=== PATIENT | female | born 1940 | race Two or more races ===

== ENCOUNTER 2024-06-04 17:59 | Inpatient (IN) | payer OTHER, SELFPAY ==
[2024-06-04 11:27] VITALS: BP 163/85
[2024-06-04 11:54] LABS: % Basophils 0.1 % (0-2); % Immature Granulocytes 0.3 % (0-0.5); % Lymphocytes 21.2 % (20.5-51.1); % Monocytes 6.6 % (1.7-9.3); % Neutrophils 71.8 % (42.2-75.2); Absolute Lymphocytes 1.6 10^3/uL (1.2-3.4); Absolute Monocytes 0.5 10^3/uL (0.1-0.6); Absolute Neutrophils 5.4 10^3/uL (1.4-6.5); Hematocrit 36.7 % (37.0-47.0); Hemoglobin 12.5 g/dL (12.0-16.0); Mean Corp Hgb Conc. 34.1 g/dL (33.0-37.0); Mean Corpuscular Hgb 31.2 pg (27.0-31.0); Mean Corpuscular Volume 91.5 fL (81.0-99.0); Mean Platelet Volume 10.8 fL (7.4-10.4); Nucleated Red Blood Cells % 0 %; Platelet Count 171 10^3/uL (130-400); Red Blood Cell Count 4.01 10^6/uL (4.20-5.40); Red Cell Dist. Width 13.9 % (11.5-14.5); White Blood Cell Count 7.5 10^3/uL (4.8-10.8)
[2024-06-04 12:08] LABS: ALT (SGPT) 26 U/L (0-35); AST (SGOT) 28 U/L (14-36); Albumin 3.9 g/dl (3.5-5.0); Alkaline Phosphatase 74 U/L (38-126); Blood Urea Nitrogen 15 mg/dl (7-17); Calcium 9.3 mg/dl (8.4-10.2); Carbon Dioxide 21 mmol/L (22-30); Chloride 104 mmol/L (98-107); Glucose 186 mg/dl (70-99); Potassium 4.3 mmol/L (3.5-5.1); Sodium 137 mmol/L (135-145); Total Bilirubin 1.4 mg/dl (0.2-1.3); Total Protein 7.1 g/dl (6.3-8.2); eGFR > 60.00
[2024-06-04 12:09] LABS: Lactic Acid 1.6 mmol/L (0.7-2.0)
[2024-06-04 12:12] LABS: COVID-19 Antigen Negative (Negative)
[2024-06-04 12:17] LABS: Troponin I < 0.012 ng/ml
[2024-06-04 12:22] VITALS: BP 160/66
[2024-06-04 12:24] LABS: Lipase 87 U/L (23-300)
--- NOTE | 2024-06-04 12:31 | ED.GENMED ---
History of Present Illness
General
Chief Complaint: Abdominal Pain
Time Seen by Provider: 06/04/24 12:16
History of Present Illness
History of Present Illness:
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
associated with nausea, loss of appetite, and fatigue. Patient also has a mild cough. She has had weight loss. No fevers. No vomiting or diarrhea. Patient was seen in the urgent care last week and underwent an x-ray of the chest and an EKG both
of which were reportedly normal. Given persistent symptoms patient was ultimately directed to the emergency department.
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
Review of Systems
Review of Systems
All Other Systems: ROS reviewed and negative except as documented in HPI and ROS
Phy Exam
Physical Exam
Physical Exam:
GENERAL: Alert , in no apparent distress
EYE: pupils equal and reactive
NECK: Supple, no significant adenopathy.
ENT: o/p clr, mmm.
CARDIAC: Regular rate and rhythm .
LUNGS: Clear breath sounds bilaterally, no acute respiratory distress, no wheezes/rales/rhonchi
ABDOMEN: Soft, without focal tenderness, no r/g, no cvat
NEUROLOGICAL: Alert and oriented, no focal neuro deficits
SKIN: Warm and dry, skin intact.
MUSCULOSKELETAL: No edema, well perfused.
PSYCH: Normal and appropriate interaction.
Course
Orders/Labs/Results
Orders:
Orders
06/04/24 11:31
Electrocardiogram (*1) Urgent
Reason for Study: Abdominal Pain
06/04/24 11:32
EKG- Treatment ONCE
06/04/24 11:42
COVID-19 Antigen Urgent
Source: Nasal Swab
Complete Blood Count/With Diff Urgent
Comprehensive Metabolic Panel Urgent
Lactic Acid Urgent
Lipase Urgent
Troponin I Urgent
Influenza A+B Rapid Molecular Urgent
MECHE Source: Nasal Swab
Specimen Description:
06/04/24 12:33
CR Chest - 2 Views Urgent
Comment:
Reason For Exam: cough
06/04/24 12:36
Abdomen/Pelvis w Contrast CT [CT Abd/pelvis W Iv Cont] Urgent
Comment:
Reason For Exam: abd pain loss of appetite
06/04/24 13:56
Urinalysis Reflex To Culture Urgent
Date Specimen was Collected: 06/04/24
Time Specimen was Collected: 13:12
Urine Microscopic Reflex Cult Urgent
Abnormal Lab Results
06/04/24 06/04/24
11:42 13:56
RBC 4.01 L 10^6/uL
(4.20-5.40)
Hct 36.7 L %
(37.0-47.0)
MCH 31.2 H pg
(27.0-31.0)
MPV 10.8 H fL
(7.4-10.4)
Carbon Dioxide 21 L mmol/L
(22-30)
Glucose 186 H mg/dl
(70-99)
Total Bilirubin 1.4 H mg/dl
(0.2-1.3)
Leukocyte Esterase Rfl Trace A
(Negative)
06/04/24 11:42
06/04/24 11:42
Vital Signs
Initial and Last Documented VS:
Initial Vital Signs
Temp Pulse Resp BP Pulse Ox
98.2 F 97 20 163/85 98
06/04/24 11:27 06/04/24 11:27 06/04/24 11:27 06/04/24 11:27 06/04/24 11:27
Last Documented Vital Signs
Temp Pulse Resp BP Pulse Ox
98.2 F 79 19 166/74 98
06/04/24 11:27 06/04/24 16:11 06/04/24 16:11 06/04/24 16:11 06/04/24 16:11
MDM/Problems Addressed
Differential Diagnosis Includes:
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
Overall, patient appears well. Vital signs remarkable for an elevated blood pressure. Physical examination described above. Abdomen soft and nontender however given symptoms and findings we will obtain blood work in addition to urinalysis and CT
scan of the abdomen and pelvis with IV contrast.
06/04/2024 17:45: Screening labs grossly within normal limits/consistent with the patient's baseline. CT scan of the abdomen and pelvis reveals cholelithiasis without evidence of acute cholecystitis. There is also a lung nodule which patient and
family were made aware of. Patient's family members are very concerned for the patient's symptoms given loss of appetite/decreased p.o. intake, lethargy, fatigue, and weakness. Given findings we will plan for admission to the hospital for failure
to thrive. 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
*Critical Care Note
Total Time (30-74mins, 75-104mins- exclusive of procedures): Not Applicable
ED Attending Note
-
Portions of this chart may have been created with voice recognition software.� Occasional wrong word or��sound alike� substitutions may have occurred due to the inherent limitations of voice recognition software.
Discharge Plan
Departure
Patient Disposition: Admit
Date of Disposition: 06/04/24
Time of Disposition: 17:01
Admit to: Med/Surg
Admit to doctor: Dana Johnson
Presentation/result/management discussed w/ accepting MD/DO: Hospitalist
Patient with high blood pressure during this ER visit?: Yes
Condition: Fair
Covid-19: Negative COVID-19
Discharge Problem:
Abdominal pain, Weakness, Adult failure to thrive
Referrals:
Mary Beth Hidalgo NP [Family Provider] -
Interventions
Interventions:
*Risk Screen - Suicide Last Done: 06/04/24 12:23
*General Assessment Last Done: 06/04/24 11:27
*Neglect/Abuse Screening Last Done: 06/04/24 12:23
ED- Fall Risk Assessment Last Done: 06/04/24 12:23
PE-Exvoor-Okrfejsupp Assessment Last Done: 06/04/24 11:59
Discharge Date and Time
Print Language: BHUTANESE
[2024-06-04 14:29] LABS: Urine Albumin Negative (Neg - Trace); Urine Bilirubin Negative (Negative); Urine Character Clear (Clear); Urine Color Yellow; Urine Glucose Negative (Negative); Urine Ketone Negative (Negative); Urine Leukocyte Trace (Negative); Urine Nitrite Negative (Negative); Urine Occult Blood Negative (Negative); Urine Specific Gravity 1.005 (<1.030); Urine Urobilinogen Negative (Neg - 1+); Urine pH 6.5 (5.0-9.0)
[2024-06-04 14:52] LABS: Urine White Cell 0-2 /HPF (0-5)
[2024-06-04 14:53] LABS: Urine Red Blood Cell None Seen /HPF (0-2)
[2024-06-04 16:11] VITALS: BP 166/74
--- NOTE | 2024-06-04 17:08 | HPS.HSE ---
Family Physician
-
Family Physician: Mary Beth Hidalgo NP
Chief Complaint
-
Abdomen pain
History of Present Illness
84-year-old [place]-speaking female with HTN, H/O CVA, H/O DVT on anticoagulation that presented with family due to the complaint of abdominal pain. Describes roughly 2 weeks of epigastric abdominal discomfort associated with nausea, loss of
appetite, fatigue. Has had weight loss recently, though family denies any known fevers, vomiting, diarrhea. Patient does state that the symptoms are worse at night, has been accompanied by sensation of heartburn though denies any regurgitation or
dysphagia. States that pain prevents her from eating, is not worse after eating. Patient was seen in urgent care last week and had x-ray and EKG, results unavailable to reportedly they were both normal. Due to persistence of symptoms she was sent
to the emergency department. Upon arrival was hypertensive with systolic blood pressure in the 160s though otherwise afebrile, hemodynamically stable, and on room air initial lab studies largely unremarkable, total bilirubin 1.4. Troponin
negative, ECG without ischemic findings. Chest x-ray unremarkable. CT A/P was without acute findings, showed cholelithiasis but no findings of cholecystitis, showed 4.3 mm subpleural nodule in the left lower lobe.
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 History obtained from patient and her 2 daughters.
Medical History
Past Medical History
Past Medical History: Reports CVA, HTN and Other (DVT)
Past Surgical History: Reports None
Social History
Tobacco: Non-smoker
Alcohol: None
Drug: None
Family History
Family History: Not pertinent
Allergies / Home Medications
Allergies reflects when Allergies were last updated in [employer].
Home Medications with original date entered in [employer]
Allergy/Medication List:
Allergies
Allergy/AdvReac Type Severity Reaction Status Date / Time
No Known Allergies Allergy Unverified 06/04/24 11:27
Review of Systems
-
History Source: Patient and Family
A 12 point ROS was completed and negative except as noted: Yes
Constitutional: Reports No Symptoms
EENT: Reports No Symptoms
Respiratory: Reports Cough
Cardiac: Reports No Symptoms
Abdomen/GI: Reports See HPI
: Reports No Symptoms
Musculoskeletal: Reports No Symptoms
Skin: Reports No Symptoms
Neurological: Reports No Symptoms
Endocrine: Reports No Symptoms
Hematologic/Lymphatic: Reports No Symptoms
Psych: Reports No Symptoms
Physical Exam
Vital Signs
Vital Signs
Temp Pulse Resp BP Pulse Ox
98.2 F 79 19 166/74 98
06/04/24 11:27 06/04/24 16:11 06/04/24 16:11 06/04/24 16:11 06/04/24 16:11
Physical Exam
General: Well Developed, Well Nourished, No Apparent Distress, Comfortable and Obese
HEENT: NormoCephalic, Anicteric, Moist mucous membranes, Atraumatic and PERRLA
Respiratory: Clear and Non Labored Respirations; No Wheezes, Rales or Rhonchi
Cardiac: S1/S2 and Regular Rhythm; No Murmur, Rub, Gallop or Peripheral Edema
GI: Soft, Non Tender (Nontender to deep epigastric palpation, possibly limited by habitus), Non Distended and Normal Bowel Sounds
Musculoskeletal: No Clubbing and No Cyanosis
Skin: Warm and Dry; No Rash
Neuro: AO x 3 and Nonfocal/grossly intact
Psych: Calm
Laboratory Results
-
06/04/24 11:42
06/04/24 11:42
Laboratory Results
Lactic Acid 1.6 mmol/L (0.7-2.0) 06/04/24 11:42
Total Bilirubin 1.4 mg/dl (0.2-1.3) H 06/04/24 11:42
AST 28 U/L (14-36) 06/04/24 11:42
ALT 26 U/L (0-35) 06/04/24 11:42
Alkaline Phosphatase 74 U/L (38-126) 06/04/24 11:42
Troponin I < 0.012 ng/ml 06/04/24 11:42
Lipase 87 U/L (23-300) 06/04/24 11:42
Data Reviewed
-
CT Scan: Report Reviewed by me, Discussed with Patient and Discussed with Family
Lab Data: Labs Reviewed by me, Discussed with Patient and Discussed with Family
Impression/Plan
-
#Epigastric pain
#Nonproductive cough
-Question GERD/esophagitis/gastritis as etiology for the symptoms; worse at night, with heartburn as Sx
-Has been present for roughly 2-3 weeks, associated with recent weight loss as well
-CT A/P w/ contrast without acute findings, cholelithiasis but no gallbladder inflammation
-Chest x-ray without any acute findings, or identifiable causes for cough
-No peritoneal signs on exam, no free air on x-ray
Plan
-Will start PPI and famotidine empirically for acid suppression
-If responsive to acid suppression will need EGD, likely OP
-Monitor symptoms, serial abdomen exam
-Trend CBC on home Eliquis
-Regular diet for now
-Avoid NSAIDs
#Failure to thrive
#Weight loss
-Likely related to epigastric pain and reduced intake
-Will start regular diet, calorie counts
-Consider Ensure with meals
#Lung nodule
-Will need follow-up CT as OP in 12 months
#Hypertension
-No known history of hypertensive systemic disease
-Home meds include losartan 50 mg QD, amlodipine 2.5 mg HS
-Blood pressure elevated now though unclear if she got the meds today
-Will add on hydralazine as needed
#Gout
-Home medications include daily allopurinol 100 mg
-No signs of active flare
#H/O CVA
-Unclear etiology, not currently on aspirin or statin
-No obvious residual deficits noted
#H/O DVT
-Unclear nature of disease, likely unprovoked is on indefinite AC
-Home medications include Eliquis 2.5 mg twice daily
DVT prophylaxis: Home Eliquis
Diet: Regular
CODE STATUS: Full code
Disposition: Admit to Med/Surg, PT/OT evaluation
[2024-06-04 21:44] VITALS: BP 151/73; BMI 34.1
--- NOTE | 2024-06-04 21:45 | PTCARENOTE ---
Patient admitted from the ED. Patient ambulated into room. Patient AAOx3. Patient is able to state needs. Call giraldo within reach. Will continue with current plan.
[2024-06-04] MEDS: LR 1000 IV (22:19)
[2024-06-04] MEDS: ELIQUIS 2.5 MG PO (22:19)
[2024-06-04] MEDS: PROTONIX IV 40 MG IV (22:20)
[2024-06-04] MEDS: NSS (PRESERVATIVE FREE) 10 ML IV (22:20)
[2024-06-04] MEDS: NORVASC 2.5 MG PO (22:25)
[2024-06-04] MEDS: ZYLOPRIM 100 MG PO (22:26)
[2024-06-04 23:00] VITALS: BP 130/65
[2024-06-05 07:14] VITALS: BP 154/70
[2024-06-05 07:16] LABS: % Basophils 0.2 % (0-2); % Eosinophils 0.2 % (0-6); % Immature Granulocytes 0.3 % (0-0.5); % Lymphocytes 24.9 % (20.5-51.1); % Neutrophils 64.4 % (42.2-75.2); Absolute Lymphocytes 1.5 10^3/uL (1.2-3.4); Absolute Monocytes 0.6 10^3/uL (0.1-0.6); Absolute Neutrophils 3.9 10^3/uL (1.4-6.5); Hematocrit 31.7 % (37.0-47.0); Hemoglobin 11.2 g/dL (12.0-16.0); Mean Corp Hgb Conc. 35.3 g/dL (33.0-37.0); Mean Corpuscular Hgb 32.3 pg (27.0-31.0); Mean Corpuscular Volume 91.4 fL (81.0-99.0); Mean Platelet Volume 11.4 fL (7.4-10.4); Nucleated Red Blood Cells % 0 %; Platelet Count 155 10^3/uL (130-400); Red Blood Cell Count 3.47 10^6/uL (4.20-5.40); Red Cell Dist. Width 13.6 % (11.5-14.5)
[2024-06-05 08:05] LABS: Blood Urea Nitrogen 15 mg/dl (7-17); Calcium 8.8 mg/dl (8.4-10.2); Carbon Dioxide 25 mmol/L (22-30); Chloride 105 mmol/L (98-107); Estimated Creatinine Clearance 45 ml/min; Glucose 93 mg/dl (70-99); Potassium 4.8 mmol/L (3.5-5.1); Sodium 139 mmol/L (135-145)
[2024-06-05] MEDS: ELIQUIS 2.5 MG PO (08:40)
[2024-06-05] MEDS: VITAMIN D3 (cholecalciferol) 50 MCG PO (08:40)
[2024-06-05] MEDS: PROTONIX IV 40 MG IV (08:40)
[2024-06-05] MEDS: LR 1000 IV (08:40)
[2024-06-05] MEDS: NSS (PRESERVATIVE FREE) 10 ML IV (08:40)
[2024-06-05] MEDS: COZAAR 50 MG PO (08:41)
--- NOTE | 2024-06-05 10:49 | W.PN.HOSP.TC ---
Addendum entered and electronically signed by Charli Tyson DO 06/05/24 13:46:
>30 minutes spent on preparing discharge for today
Original Note:
Today's Communication/Plan
-
Continue antacid therapy
Monitor oral intake
Likely discharge home with VN
Patient does not want home PT
Assessment / Plan
Assessment / Plan
#GERD
#Questionable gastritis/esophagitis versus dyspepsia
-Presented as epigastric pain, reduced oral intake with weight loss; heartburn symptoms worse at night as well as well as intermittent cough
-Started on antacid therapy at admission and symptomatically she is improved today, requesting food today
-CT A/P w/ contrast without acute findings, cholelithiasis but no gallbladder inflammation
-Chest x-ray without any acute findings, or identifiable causes for cough
-No peritoneal signs on exam, no free air on x-ray
Plan
-DC on daily PPI, famotidine as needed twice daily
-Follow-up with GI OP for EGD, H. pylori biopsy
-Avoid NSAIDs
#Failure to thrive
#Weight loss
-Likely related to epigastric pain and reduced intake
-Will start regular diet, calorie counts
-Consider Ensure with meals
#Lung nodule
-Will need follow-up CT as OP in 12 months
#Hypertension
-No known history of hypertensive systemic disease
-Home meds include losartan 50 mg QD, amlodipine 2.5 mg HS
-Blood pressure elevated now though unclear if she got the meds today
-Will add on hydralazine as needed
#Gout
-Home medications include daily allopurinol 100 mg
-No signs of active flare
#H/O CVA
-Unclear etiology, not currently on aspirin or statin
-No obvious residual deficits noted
#H/O DVT
-Unclear nature of disease, likely unprovoked is on indefinite AC
-Home medications include Eliquis 2.5 mg twice daily
DVT prophylaxis: Home Eliquis
Diet: Regular
CODE STATUS: Full code
Anticipated Discharge: Within 24 hours
Subjective/Interval History
-
Date of Service: June 05, 2024
Seen and examined at the bedside. No acute events reported overnight. AFVSS this morning
Nursing at bedside provided translation. Patient states she feels well, has no abdomen pain and is requesting food.
Denies other new complaints.
Updated daughter at the bedside about likely discharge later
Objective Data
-
Labs:
Laboratory Results
06/05/24
05:59
WBC 6.0
Hgb 11.2 L
Hct 31.7 L
Plt Count 155
Sodium 139
Potassium 4.8
Chloride 105
Carbon Dioxide 25
BUN 15
Creatinine 1.0
Glucose 93
Calcium 8.8
Vital Signs:
Vital Signs
Temp Pulse Resp BP Pulse Ox
98.8 F 75 16 154/70 93
06/05/24 07:14 06/05/24 07:14 06/05/24 07:14 06/05/24 07:14 06/05/24 07:14
I&O
06/04/24 06/05/24 06/06/24
06:59 06:59 06:59
Intake Total 900 / 900
Balance 900 / 900
Review of Systems
-
History Source: Patient
All other systems: Reviewed and negative
Physical Exam
-
General: Well Developed, No Apparent Distress, Comfortable and Obese
HEENT: Normocephalic, Atraumatic and Moist Mucous Membranes
Respiratory: Clear to Auscultation and Non Labored Respirations
Cardiac: Regular Rhythm and S1/S2; Negative Murmur, Rub or Gallop
GI: Soft, Nontender, Nondistended and Normal Bowel Sounds
Musculoskeletal: No Clubbing, No Cyanosis and No Edema
Skin: Warm, Dry and Normal Turgor; Negative Rash
Neuro: AO x 3, Nonfocal/Grossly Intact and Central Nerve's Intact
Psych: Calm
--- NOTE | 2024-06-05 13:46 | W.DCSUMMARY ---
Discharge Summary
Discharge Data
Date of Admission: 06/04/24
Date of Discharge: 06/05/24
-
Pending Results: No
Hospital Course
84-year-old female with hypertension, gout, history of DVT on Eliquis that presented to the hospital with epigastric pain over 2 to 3 weeks, associated with reduced oral intake and weight loss. For additional history obtained by patient and family,
noted to have worsening symptoms at night and associated with a dry cough. Also mentioned occasional heartburn symptoms, though denied any dysphagia or regurgitation. Was started empirically on antacid regimen with PPI and as needed famotidine.
By next day was symptomatically improved and requesting breakfast. Monitored for recurrence of symptoms which were not present by time of discharge. Transitioned regimen to pantoprazole 40 mg daily, famotidine 40 mg up to twice daily as needed for
breakthrough symptoms of heart pain/dyspepsia. Recommend outpatient follow-up with family doctor. Provided referral for gastroenterology. With new onset GERD in her 80s she should have an EGD to rule out malignancy.
Discharge Plan
-
Patient Disposition: Home (Routine Discharge)
Discharge Diagnosis/Procedures: Gastroesophageal reflux disease
Possible gastritis/esophagitis
Condition: Good
Diet: No restrictions
Additional Diets: If you notice certain foods that make heartburn worse then avoid those food
Activity: As tolerated
Driving Restrictions: Not until seen by your Dr
Bathing Restrictions: None
Blood Work: None
Others Tests: None
Activity Restrictions/Additional Instructions:
Follow-up with your family doctor after discharge, should be seen in office within 1 to 2 weeks
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 Call their office to schedule an appointment, should have a procedure called an EGD done due to new onset of GERD
If you notice dark black tar-like stools or the presence of red blood in your stools then return to the emergency department for further evaluation
Instructions: Acid reflux and GERD in adults
Referrals:
Mary Beth Hidalgo NP [Family Provider] -
Venu Redmond, [Active] - in one to two weeks
Additional Discharge Medication Instructions: Start pantoprazole 40 mg every day
Start famotidine 40 mg up to twice daily as needed for symptoms of heartburn or abdomen pain
Prescriptions:
New
famotidine 40 mg Tablet
40 mg PO BIDPRN PRN (Reason: Heartburn/epigastric pain) 30 Days Qty: 60 0RF
pantoprazole 40 mg tablet,delayed release (DR/EC)
40 mg PO DAILY 30 Days Qty: 30 0RF
Continued
losartan 50 mg Tablet
50 mg PO DAILY
amlodipine 2.5 mg Tablet
2.5 mg PO DAILY
allopurinol 100 mg Tablet
100 mg PO DAILY
Eliquis 2.5 mg Tablet
2.5 mg PO BID
Vitamin D3
50 mcg DAILY
Discharge Orders:
Discharge Patient (As Directed); Ordered 06/05/24
Ordered By: Charli Tyson
Discharge Date and Time
Print Language: SPANISH
--- NOTE | 2024-06-05 14:14 | CM ---
Met with patient and daughter.
Patient is djiboutian speaking/daughter translate
IA Completed.
CM consult completed - VN - PATIENT/DAUGHTER declines VN - tt hospitalist
Patient lives in an apartment no steps, elevator access
PLOF: ambulates without device
DME: shower chair
Has private aides daily for 6hrs through [facility]
PCP: Steve Lane & Elsa Haynes,
Pharmacy: [facility],
PLAN: Home, declines VN - has private aides daily 6hrs through [facility]
daughter to transport
[2024-06-05 14:23] VITALS: BP 150/68
== END 2024-06-05 14:48 | disposition home or self-care (01) | DRG 392 ==
LOC: 4 WEST ACU 17:59
PROVIDERS: Emergency Medicine; Physician Assistant; ADMITTING PHYSICIAN Internal Medicine; EMERGENCY PHYSICIAN Emergency Medicine; FAMILY PHYSICIAN Nurse Practitioner Adult Health
DX: K21.00 Gastro-esophageal reflux disease with esophagitis, without bleeding (principal); K29.70 Gastritis, unspecified, without bleeding; I10 Essential (primary) hypertension; M10.9 Gout, unspecified; R62.7 Adult failure to thrive; Z86.73 Personal history of transient ischemic attack (TIA), and cerebral infarction without residual deficits; Z86.718 Personal history of other venous thrombosis and embolism; Z79.01 Long term (current) use of anticoagulants; Z79.899 Other long term (current) drug therapy
CPT/HCPCS: 71046; 74177; 80048; 80053; 81003; 81015; 83605; 83690; 84484; 85025; 87502; 87811; 93005; 99285; Q9967